=== PATIENT | male | born 1970 | race Caucasian/White ===

== ENCOUNTER 2018-02-28 04:41 | Emergency (ER) | payer OTHER ==
[~2018-02-28] VITALS: Ht 177.8 cm; Wt 72.6 kg
[~2018-02-28 04:41] MED LIST: HYDROCODON-ACE1 EAC7 PO
[2018-02-28] MEDS ORDERED: KEFLEX500 M1 PO (05:15)
[2018-02-28] MEDS ORDERED: ELIMITE60 GM TOP (05:19)
[2018-02-28 05:39] VITALS: BP 103/73
== END 2018-02-28 05:43 | disposition home or self-care (01) ==
LOC: M.ERS 04:41
DX: L01.00 Impetigo, unspecified (principal)